=== PATIENT | male | born 1935 | race Caucasian/White ===

== ENCOUNTER 2021-01-07 19:42 | Emergency (ER) | payer MEDICARE, OTHER, SELFPAY ==
[2021-01-07] VITALS (12 sets, daily range): BP systolic 143–169; BP diastolic 74–100; PULSE 74–86; RESP 14–22; TEMP 35.6; O2SAT 92–99
--- NOTE | 2021-01-07 19:46 | DI.RAD.S_ITS ---
PROCEDURE: XR CHEST 1V INDICATIONS: chest pain TECHNIQUE: One view of the chest was acquired. COMPARISON: None. FINDINGS: Surgical changes and devices: None. Lungs and pleura: Left basilar scars and atelectasis. No pleural effusions or pneumothorax. Mediastinum: Mediastinal contours appear normal. Heart size is normal. Bones and chest wall: No suspicious bony lesions. Overlying soft tissues appear unremarkable. IMPRESSION: No acute cardiopulmonary disease. Left basilar scars and atelectasis. Dictated by: Leodan Kraus M.D. on 01/07/2021 at 20:22 Approved by: Leodan Kraus M.D. on 01/07/2021 at 20:22
[2021-01-07 20:05] LABS: Add Manual Diff / Slide Review NO; Basophils Absolute Auto 100 /uL (0-100); Basophils Percent Auto 1.4 % (0-2); Eosinophils Absolute Auto 300 /uL (0-450); Eosinophils Percent Auto 3.7 % (2-4); Hematocrit 46.5 % (41-53); Hemoglobin 15.5 g/dL (13.5-17.5); Lymphocytes Absolute Auto 1400 /uL (1100-4500); Lymphocytes Percent Auto 16.7 % (25-40); Mean Corpuscular HGB Conc 33.3 % (30-36); Mean Corpuscular Hemoglobin 33.8 PG (26-34); Mean Corpuscular Volume 101.3 fL (80-100); Monocytes Absolute Auto 1300 /uL (0-900); Monocytes Percent Auto 15.9 % (3-14); Neutrophils Absolute Auto 5100 /uL (1500-7000); Neutrophils Percent Auto 62.3 % (50-75); Platelet Count 170 X10^3/uL (150-400); Red Blood Cell Count 4.59 X10^6/uL (4.5-5.9); Red Cell Distribution Width 14.4 % (11.6-14.8); White Blood Cell Count 8.1 X10^3/uL (4.5-11.0)
[2021-01-07 20:14] LABS: INR 1.3 (0.9-1.3)
[2021-01-07 20:17] LABS: PTT Partial Thromboplastin Tim 30 SECONDS (26.4-36.2)
[2021-01-07 20:22] LABS: D Dimer 612 ng/mL (<230)
--- NOTE | 2021-01-07 20:24 | ED.SYNCOPE ---
HPI - Syncope <Bar Marie DO - Last Filed: 01/15/21 16:20> General Chief Complaint: Syncope Stated Complaint: Syncopal * 5 mins Time Seen by Provider: 01/07/21 19:45 Source: patient and EMS Mode of arrival: EMS History of Present Illness HPI narrative: 85M nonsmoker with history of paroxysmal AFib presents by EMS for evaluation of an episode of syncope. He was in his normal state of health and sitting at a table with some friends when he passed out. There is no report of obvious provocation such as standing up, walking, vomiting, chest pain. He had a episode of something over and quickly returned to his normal. He denies any change in medications or diet. He did have a couple alcoholic drinks today and denies much in the way of food and other drink. He denies any change in medications or recent travel. he is completely asymptomatic on arrival Related Data Allergies Allergy/AdvReac Type Severity Reaction Status Date / Time Penicillins Allergy Unknown Verified 01/07/21 19:50 Review of Systems <DO Yi Carter Last Filed: 01/15/21 16:20> Review of Systems Narrative: GENERAL: Denies chills, fatigue, malaise, fever, sweats. HEENT: Denies sinus pain, ear pain, sore throat, difficulty swallowing, dizziness. RESPIRATORY: Denies dyspnea, cough, wheezing, hemoptysis, sputum. CARDIOVASCULAR: see HPI GASTROINTESTINAL: Denies nausea, vomiting, abdominal pain, diarrhea, constipation, melena. : Denies dysuria, frequency, incontinence, hematuria, urinary retention. MUSCULOSKELETAL: denies weakness, joint pain, or bony pain SKIN: Denies rash, skin lesions, or other NEUROLOGIC: Denies weakness, headache, numbness, change in speech, confusion, seizures, incoordination. PSYCHIATRIC: No concerning psychosocial issues. 12 point review of systems is negative except for those stated above Patient History <DO Yi Carter Last Filed: 01/15/21 16:20> Social History Smoking Status: Former smoker Smoking Status: Former smoker alcohol intake frequency: 3 or more drinks per day Substance Use Type: does not use Exam <DO Yi Carter Last Filed: 01/15/21 16:20> Narrative Exam Narrative: GENERAL: [85] year old patient appears stated age. Well-developed patient, in mild distress. HEAD: Atraumatic. Normocephalic. EYES: Pupils equal round and reactive. Extraocular motions intact. No scleral icterus. No injection or drainage. ENT: Nose without bleeding, purulent drainage. Throat without erythema, tonsillar hypertrophy or exudate. Airway patent. NECK: Trachea midline. Non tender CARDIOVASCULAR: Regular rate and rhythm without murmurs, gallops, or rubs. RESPIRATORY: Clear to auscultation. Breath sounds equal bilaterally. No wheezes, rales, or rhonchi. GASTROINTESTINAL: Abdomen soft, non-tender, nondistended. EXTREMITIES: No edema or joint tenderness. BACK: Nontender without deformity or crepitance. No flank tenderness. NEURO: AOx3. SKIN: No rash or erythema of visible areas Initial Vital Signs Initial Vital Signs: Vital Signs Temperature 96.1 F L 01/07/21 19:45 Pulse Rate 85 01/07/21 19:45 Respiratory Rate 14 01/07/21 19:45 Blood Pressure 166/82 H 01/07/21 19:45 Pulse Oximetry 99 01/07/21 19:45 <Virgilio Real DO - Last Filed: 01/08/21 09:41> Initial Vital Signs Initial Vital Signs: Vital Signs Temperature 96.1 F L 01/07/21 19:45 Pulse Rate 85 01/07/21 19:45 Respiratory Rate 14 01/07/21 19:45 Blood Pressure 166/82 H 01/07/21 19:45 Pulse Oximetry 99 01/07/21 19:45 Course <Bar Marie DO - Last Filed: 01/15/21 16:20> Orders Ordered: Discontinued Medications Sodium Chloride (Normal Saline 0.9%) 1,000 mls @ 1,000 mls/hr IV BOLUS ONE Stop: 01/07/21 21:53 Last Infusion: 01/07/21 23:02 Dose: 0 mls/hr Documented by: [email or web address] Admin: 01/07/21 21:00 Dose: 1,000 mls/hr Documented by: [email or web address] Reevaluation(s) Reevaluation #1: Patient ambulating through the department using the restroom without any symptoms such as dizziness, weakness or lightheadedness. He is at his baseline and feeling quite well Consultations Consultation #1: discussion with patient's own elevator erector Dr. Patel, states he recommends observing for few hours, trending labs, EKG and provided there are no significant findings recommends discharge with close follow-up to include a likely Holter monitor. Vital Signs Vital signs: Vital Signs - 8 hr 01/08/21 08:32 Pulse Rate 110 H Blood Pressure 195/107 H Pulse Oximetry 97 <Virgilio Real DO - Last Filed: 01/08/21 09:41> Orders Ordered: Discontinued Medications Sodium Chloride (Normal Saline 0.9%) 1,000 mls @ 1,000 mls/hr IV BOLUS ONE Stop: 01/07/21 21:53 Last Infusion: 01/07/21 23:02 Dose: 0 mls/hr Documented by: [email or web address] Admin: 01/07/21 21:00 Dose: 1,000 mls/hr Documented by: CTRJENNA Vital Signs Vital signs: Vital Signs - 8 hr 01/08/21 08:32 Pulse Rate 110 H Blood Pressure 195/107 H Pulse Oximetry 97 MDM - Syncope <Bar Marie DO - Last Filed: 01/15/21 16:20> Lab Data Result diagrams: 01/08/21 00:51 01/08/21 00:51 Labs: Lab Results 01/07/21 01/07/21 01/07/21 Range/Units 19:54 19:54 19:54 WBC 8.1 (4.5-11.0) X10^3/uL RBC 4.59 (4.5-5.9) X10^6/uL Hgb 15.5 (13.5-17.5) g/dL Hct 46.5 (41-53) % MCV 101.3 H (80-100) fL MCH 33.8 (26-34) PG MCHC 33.3 (30-36) % RDW 14.4 (11.6-14.8) % Plt Count 170 (150-400) X10^3/uL Neut % (Auto) 62.3 (50-75) % Lymph % (Auto) 16.7 L (25-40) % [place] % (Auto) 15.9 H (3-14) % Eos % (Auto) 3.7 (2-4) % Baso % (Auto) 1.4 (0-2) % Neut # (Auto) 5100 (6829-9065) /uL Lymph # (Auto) 1400 (8184-5424) /uL [place] # (Auto) 1300 H (0-900) /uL Eos # (Auto) 300 (0-450) /uL Baso # (Auto) 100 (0-100) /uL PT 15.0 H (10.1-12.7) SECONDS INR 1.3 (0.9-1.3) APTT 30 (26.4-36.2) SECONDS D-Dimer 612 H (<230) ng/mL Sodium (137-145) mmol/L Potassium (3.4-5.1) mmol/L Chloride (98-107) mmol/L Carbon Dioxide (22-32) mmol/L BUN (9-20) mg/dL Creatinine (0.66-1.25) mg/dL Estimated GFR (>60) mL/min BUN/Creatinine Ratio (6-22) Glucose (80-110) mg/dL Calcium (8.4-10.2) mg/dL Magnesium (1.6-2.3) mg/dL Total Bilirubin (0.2-1.3) mg/dL AST (17-59) IU/L ALT (<50) IU/L Alkaline Phosphatase (38-126) U/L Total Creatine Kinase (55-170) U/L CK-MB (CK-2) CK-MB (CK-2) Rel Index Troponin I (0.01-0.034) ng/mL NT-Pro-B Natriuret Pep (<450) pg/mL Total Protein (6.3-8.2) g/dL Albumin (3.5-5.0) g/dL Globulin (1.7-4.1) g/dL Albumin/Globulin Ratio (1.0-2.8) Lipase (23-300) U/L SARS-CoV-2 (PCR) (Negative) 01/07/21 01/07/21 01/07/21 Range/Units 20:01 20:20 20:20 WBC (4.5-11.0) X10^3/uL RBC (4.5-5.9) X10^6/uL Hgb (13.5-17.5) g/dL Hct (41-53) % MCV (80-100) fL MCH (26-34) PG MCHC (30-36) % RDW (11.6-14.8) % Plt Count (150-400) X10^3/uL Neut % (Auto) (50-75) % Lymph % (Auto) (25-40) % [place] % (Auto) (3-14) % Eos % (Auto) (2-4) % Baso % (Auto) (0-2) % Neut # (Auto) (9311-7186) /uL Lymph # (Auto) (3735-8931) /uL [place] # (Auto) (0-900) /uL Eos # (Auto) (0-450) /uL Baso # (Auto) (0-100) /uL PT (10.1-12.7) SECONDS INR (0.9-1.3) APTT (26.4-36.2) SECONDS D-Dimer (<230) ng/mL Sodium 141 (137-145) mmol/L Potassium 4.1 (3.4-5.1) mmol/L Chloride 104 (98-107) mmol/L Carbon Dioxide 26 (22-32) mmol/L BUN 29 H (9-20) mg/dL Creatinine 1.71 H (0.66-1.25) mg/dL Estimated GFR 38.3 L (>60) mL/min BUN/Creatinine Ratio 17.0 (6-22) Glucose 119 H (80-110) mg/dL Calcium 9.4 (8.4-10.2) mg/dL Magnesium 2.3 (1.6-2.3) mg/dL Total Bilirubin 0.8 (0.2-1.3) mg/dL AST 40 (17-59) IU/L ALT 27 (<50) IU/L Alkaline Phosphatase 55 (38-126) U/L Total Creatine Kinase 53 L (55-170) U/L CK-MB (CK-2) TNP CK-MB (CK-2) Rel Index TNP Troponin I < 0.012 (0.01-0.034) ng/mL NT-Pro-B Natriuret Pep 1090 H (<450) pg/mL Total Protein 7.4 (6.3-8.2) g/dL Albumin 4.2 (3.5-5.0) g/dL Globulin 3.2 (1.7-4.1) g/dL Albumin/Globulin Ratio 1.3 (1.0-2.8) Lipase 144 (23-300) U/L SARS-CoV-2 (PCR) Negative (Negative) 01/08/21 01/08/21 Range/Units 00:51 00:51 WBC 6.5 (4.5-11.0) X10^3/uL RBC 4.53 (4.5-5.9) X10^6/uL Hgb 14.9 (13.5-17.5) g/dL Hct 45.9 (41-53) % MCV 101.3 H (80-100) fL MCH 32.9 (26-34) PG MCHC 32.5 (30-36) % RDW 14.1 (11.6-14.8) % Plt Count 128 L (150-400) X10^3/uL Neut % (Auto) 64.9 (50-75) % Lymph % (Auto) 16.0 L (25-40) % [place] % (Auto) 14.2 H (3-14) % Eos % (Auto) 4.2 H (2-4) % Baso % (Auto) 0.7 (0-2) % Neut # (Auto) 4200 (2464-0656) /uL Lymph # (Auto) 1000 L (6031-3282) /uL [place] # (Auto) 900 (0-900) /uL Eos # (Auto) 300 (0-450) /uL Baso # (Auto) 0 (0-100) /uL PT (10.1-12.7) SECONDS INR (0.9-1.3) APTT (26.4-36.2) SECONDS D-Dimer (<230) ng/mL Sodium 141 (137-145) mmol/L Potassium 3.9 (3.4-5.1) mmol/L Chloride 107 (98-107) mmol/L Carbon Dioxide 23 (22-32) mmol/L BUN 25 H (9-20) mg/dL Creatinine 1.55 H (0.66-1.25) mg/dL Estimated GFR 42.9 L (>60) mL/min BUN/Creatinine Ratio 16.1 (6-22) Glucose 108 (80-110) mg/dL Calcium 9.0 (8.4-10.2) mg/dL Magnesium (1.6-2.3) mg/dL Total Bilirubin (0.2-1.3) mg/dL AST (17-59) IU/L ALT (<50) IU/L Alkaline Phosphatase (38-126) U/L Total Creatine Kinase (55-170) U/L CK-MB (CK-2) CK-MB (CK-2) Rel Index Troponin I < 0.012 (0.01-0.034) ng/mL NT-Pro-B Natriuret Pep (<450) pg/mL Total Protein (6.3-8.2) g/dL Albumin (3.5-5.0) g/dL Globulin (1.7-4.1) g/dL Albumin/Globulin Ratio (1.0-2.8) Lipase (23-300) U/L SARS-CoV-2 (PCR) (Negative) Urine Dip Bedside Urine Glucose Negative Bedside Urine Bilirubin - Negative Bedside Urine Ketone - Negative Urine Specific [place] 1.015 Bedside Urine Occult Blood +/- Bedside Urine pH 6 Bedside Urine Protein + 30 Bedside Urine Urobilinogen - Negative Bedside Urine Nitrite - Negative Bedside Urine Leukocytes - Negative Esterase Imaging Data Chest x-ray: Radiologist's Impression: [address] [id number] ReportSigned Patient: Mark Alejo#: [id number]: 1935cct:[id number]/Sex: 85 / MDate of Service: 01/07/21Loc: EDAccession Number: [id number] Procedure: XR chest 1V Ordering Provider: Bar Marie D.O. PROCEDURE: XR CHEST 1V INDICATIONS: chest pain TECHNIQUE: One view of the chest was acquired. COMPARISON: None. FINDINGS: Surgical changes and devices: None. Lungs and pleura: Left basilar scars and atelectasis. No pleural effusions or pneumothorax. Mediastinum: Mediastinal contours appear normal. Heart size is normal. Bones and chest wall: No suspicious bony lesions. Overlying soft tissues appear unremarkable. IMPRESSION: No acute cardiopulmonary disease. Left basilar scars and atelectasis. Dictated by: Leodan Kraus M.D. on 01/07/2021 at 20:22 Approved by: Leodan Kraus M.D. on 01/07/2021 at 20:22 CT scan - chest: Radiologist's Impression: No evidence of PE. Minimal fibrotic changes bilaterally, no consolidation or pleural effusion. 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 in transverse dimension <Virgilio Real DO - Last Filed: 01/08/21 09:41> Lab Data Labs: Lab Results 01/07/21 01/07/21 01/07/21 Range/Units 19:54 19:54 19:54 WBC 8.1 (4.5-11.0) X10^3/uL RBC 4.59 (4.5-5.9) X10^6/uL Hgb 15.5 (13.5-17.5) g/dL Hct 46.5 (41-53) % MCV 101.3 H (80-100) fL MCH 33.8 (26-34) PG MCHC 33.3 (30-36) % RDW 14.4 (11.6-14.8) % Plt Count 170 (150-400) X10^3/uL Neut % (Auto) 62.3 (50-75) % Lymph % (Auto) 16.7 L (25-40) % [place] % (Auto) 15.9 H (3-14) % Eos % (Auto) 3.7 (2-4) % Baso % (Auto) 1.4 (0-2) % Neut # (Auto) 5100 (5215-7078) /uL Lymph # (Auto) 1400 (6445-0464) /uL [place] # (Auto) 1300 H (0-900) /uL Eos # (Auto) 300 (0-450) /uL Baso # (Auto) 100 (0-100) /uL PT 15.0 H (10.1-12.7) SECONDS INR 1.3 (0.9-1.3) APTT 30 (26.4-36.2) SECONDS D-Dimer 612 H (<230) ng/mL Sodium (137-145) mmol/L Potassium (3.4-5.1) mmol/L Chloride (98-107) mmol/L Carbon Dioxide (22-32) mmol/L BUN (9-20) mg/dL Creatinine (0.66-1.25) mg/dL Estimated GFR (>60) mL/min BUN/Creatinine Ratio (6-22) Glucose (80-110) mg/dL Calcium (8.4-10.2) mg/dL Magnesium (1.6-2.3) mg/dL Total Bilirubin (0.2-1.3) mg/dL AST (17-59) IU/L ALT (<50) IU/L Alkaline Phosphatase (38-126) U/L Total Creatine Kinase (55-170) U/L CK-MB (CK-2) CK-MB (CK-2) Rel Index Troponin I (0.01-0.034) ng/mL NT-Pro-B Natriuret Pep (<450) pg/mL Total Protein (6.3-8.2) g/dL Albumin (3.5-5.0) g/dL Globulin (1.7-4.1) g/dL Albumin/Globulin Ratio (1.0-2.8) Lipase (23-300) U/L SARS-CoV-2 (PCR) (Negative) 01/07/21 01/07/21 01/07/21 Range/Units 20:01 20:20 20:20 WBC (4.5-11.0) X10^3/uL RBC (4.5-5.9) X10^6/uL Hgb (13.5-17.5) g/dL Hct (41-53) % MCV (80-100) fL MCH (26-34) PG MCHC (30-36) % RDW (11.6-14.8) % Plt Count (150-400) X10^3/uL Neut % (Auto) (50-75) % Lymph % (Auto) (25-40) % [place] % (Auto) (3-14) % Eos % (Auto) (2-4) % Baso % (Auto) (0-2) % Neut # (Auto) (7544-4413) /uL Lymph # (Auto) (7950-1368) /uL [place] # (Auto) (0-900) /uL Eos # (Auto) (0-450) /uL Baso # (Auto) (0-100) /uL PT (10.1-12.7) SECONDS INR (0.9-1.3) APTT (26.4-36.2) SECONDS D-Dimer (<230) ng/mL Sodium 141 (137-145) mmol/L Potassium 4.1 (3.4-5.1) mmol/L Chloride 104 (98-107) mmol/L Carbon Dioxide 26 (22-32) mmol/L BUN 29 H (9-20) mg/dL Creatinine 1.71 H (0.66-1.25) mg/dL Estimated GFR 38.3 L (>60) mL/min BUN/Creatinine Ratio 17.0 (6-22) Glucose 119 H (80-110) mg/dL Calcium 9.4 (8.4-10.2) mg/dL Magnesium 2.3 (1.6-2.3) mg/dL Total Bilirubin 0.8 (0.2-1.3) mg/dL AST 40 (17-59) IU/L ALT 27 (<50) IU/L Alkaline Phosphatase 55 (38-126) U/L Total Creatine Kinase 53 L (55-170) U/L CK-MB (CK-2) TNP CK-MB (CK-2) Rel Index TNP Troponin I < 0.012 (0.01-0.034) ng/mL NT-Pro-B Natriuret Pep 1090 H (<450) pg/mL Total Protein 7.4 (6.3-8.2) g/dL Albumin 4.2 (3.5-5.0) g/dL Globulin 3.2 (1.7-4.1) g/dL Albumin/Globulin Ratio 1.3 (1.0-2.8) Lipase 144 (23-300) U/L SARS-CoV-2 (PCR) Negative (Negative) 01/08/21 01/08/21 Range/Units 00:51 00:51 WBC 6.5 (4.5-11.0) X10^3/uL RBC 4.53 (4.5-5.9) X10^6/uL Hgb 14.9 (13.5-17.5) g/dL Hct 45.9 (41-53) % MCV 101.3 H (80-100) fL MCH 32.9 (26-34) PG MCHC 32.5 (30-36) % RDW 14.1 (11.6-14.8) % Plt Count 128 L (150-400) X10^3/uL Neut % (Auto) 64.9 (50-75) % Lymph % (Auto) 16.0 L (25-40) % [place] % (Auto) 14.2 H (3-14) % Eos % (Auto) 4.2 H (2-4) % Baso % (Auto) 0.7 (0-2) % Neut # (Auto) 4200 (8396-2299) /uL Lymph # (Auto) 1000 L (8094-6547) /uL [place] # (Auto) 900 (0-900) /uL Eos # (Auto) 300 (0-450) /uL Baso # (Auto) 0 (0-100) /uL PT (10.1-12.7) SECONDS INR (0.9-1.3) APTT (26.4-36.2) SECONDS D-Dimer (<230) ng/mL Sodium 141 (137-145) mmol/L Potassium 3.9 (3.4-5.1) mmol/L Chloride 107 (98-107) mmol/L Carbon Dioxide 23 (22-32) mmol/L BUN 25 H (9-20) mg/dL Creatinine 1.55 H (0.66-1.25) mg/dL Estimated GFR 42.9 L (>60) mL/min BUN/Creatinine Ratio 16.1 (6-22) Glucose 108 (80-110) mg/dL Calcium 9.0 (8.4-10.2) mg/dL Magnesium (1.6-2.3) mg/dL Total Bilirubin (0.2-1.3) mg/dL AST (17-59) IU/L ALT (<50) IU/L Alkaline Phosphatase (38-126) U/L Total Creatine Kinase (55-170) U/L CK-MB (CK-2) CK-MB (CK-2) Rel Index Troponin I < 0.012 (0.01-0.034) ng/mL NT-Pro-B Natriuret Pep (<450) pg/mL Total Protein (6.3-8.2) g/dL Albumin (3.5-5.0) g/dL Globulin (1.7-4.1) g/dL Albumin/Globulin Ratio (1.0-2.8) Lipase (23-300) U/L SARS-CoV-2 (PCR) (Negative) Urine Dip Bedside Urine Glucose Negative Bedside Urine Bilirubin - Negative Bedside Urine Ketone - Negative Urine Specific [place] 1.015 Bedside Urine Occult Blood +/- Bedside Urine pH 6 Bedside Urine Protein + 30 Bedside Urine Urobilinogen - Negative Bedside Urine Nitrite - Negative Bedside Urine Leukocytes - Negative Esterase MDM Narrative Medical decision making narrative: Dr Real: 01/08/21 0940: Received a phone call from Radiology with the over read of his chest CT today which showed enlarged lymph nodes in his left axilla. Patient was still in the emergency department and I went and evaluated him. He had no discomfort in his left axilla. I feel these are incidental findings however he was informed of them and instructed he needed to contact his primary doctor for follow-up. He expressed understanding and agreement. Discharge Plan Departure Patient Disposition: Home Clinical Impression: Syncope Qualifiers: Syncope type: unspecified Qualified Code(s): R55 - Syncope and collapse Instructions: DI for Syncope in Adults (Fainting) Activity Restrictions/Additional Instructions: *You have been diagnosed with [ syncope with very reassuring physical exam, labs] *What to do: *Please continue to take your regular medications as directed. [ ] New medication prescriptions sent to your pharmacy: [ ] [ ] New medication written as a paper prescription [x ] No new medications given *Please follow up with your primary care provider in 2-3 days, call for an appointment. Let them know you were seen in the Emergency Department and that we ask that you be seen in follow up. We will electronically transmit a record of today's note if your PCP is in our system *If you do not have a primary care provider please contact the [facility] Resource line at [phone]. They will ask some questions about your medical history and help get you set up with a doctor in the community. *Return to Emergency Department if you should have any new, worsening or concerning symptoms, such as [fever greater than 101 F, shaking chills, worsening pain, persistent vomiting or other bothersome symptoms]
[2021-01-07 20:39] LABS: Alanine Aminotransferase 27 IU/L (<50); Albumin 4.2 g/dL (3.5-5.0); Albumin Globulin Ratio 1.3 (1.0-2.8); Alkaline Phosphatase 55 U/L (38-126); Aspartate Aminotransferase 40 IU/L (17-59); Bilirubin Total 0.8 mg/dL (0.2-1.3); Blood Urea Nitrogen 29 mg/dL (9-20); Calcium 9.4 mg/dL (8.4-10.2); Carbon Dioxide 26 mmol/L (22-32); Chloride 104 mmol/L (98-107); Creatine Kinase 53 U/L (55-170); Estimated Glomerular Filt Rate 38.3 mL/min (>60); Globulin 3.2 g/dL (1.7-4.1); Glucose 119 mg/dL (80-110); HEMOLYSIS < 15 (0-50); Lipase 144 U/L (23-300); Magnesium 2.3 mg/dL (1.6-2.3); Potassium 4.1 mmol/L (3.4-5.1); Sodium 141 mmol/L (137-145); Total Protein 7.4 g/dL (6.3-8.2)
[2021-01-07 20:47] LABS: NT-proBNP (BNP-Adult 18+) 1090 pg/mL (<450)
[2021-01-07 20:49] LABS: Troponin I < 0.012 ng/mL (0.01-0.034)
[2021-01-07] MEDS: SODIUM CHLORIDE 0.9% 1,000 ML 1000 ML IV (21:00)
[2021-01-07 21:06] LABS: COVID19 - ADMIT (NP swab/PCR) Negative (Negative)
[2021-01-08] VITALS: BP 145/75; PULSE 81; O2SAT 95
[2021-01-08 00:30] VITALS: BP 161/86; PULSE 84; O2SAT 96
--- NOTE | 2021-01-08 00:57 | DI.CT.S_ITS ---
PROCEDURE: CT ANGIO CHEST PE PROTOCOL INDICATIONS: syncope, elevated d dimer TECHNIQUE: After the administration of intravenous contrast, 2 mm thick sections acquired from the pulmonary apices to the posterior costophrenic angles. 3-dimensional maximum intensity projection (MIP) coronal and sagittal reformats were then acquired through the thorax. For radiation dose reduction, the following was used: automated exposure control, adjustment of mA and/or kV according to patient size. COMPARISON: [facility], CR, XR CHEST 1V, 01/07/2021, 19:55. FINDINGS: Image quality: Excellent. Pulmonary arteries: Pulmonary arteries are normal in size, and demonstrate no intraluminal filling defects to suggest central pulmonary embolism. Lungs and pleura: There is lingula scars and atelectasis. No pleural effusions or pneumothorax. Central and peripheral airways are patent. Mediastinum: Heart size is normal. Moderate to severe coronary artery calcification. No pericardial effusion. No mediastinal or hilar adenopathy. Thoracic aorta is normal in caliber and enhancement. Esophagus is normal in caliber. Small hiatal hernia. Bones and chest wall: No suspicious bony lesions. Ribs and thoracic spine appear intact throughout. Degenerative changes in thoracic and lumbar spine. Thyroid gland is normal. There is left axillary lymphadenopathy. For example the largest lymph node measures.1.8 cm diameter. Abdomen: Hepatic steatosis. There is a 1.8 cm low-density cortical nodule in the superior pole of the left kidney. Spleen is absent. There is a 1.6 cm nodule in the left upper abdomen, probably remnant spleen. IMPRESSION: 1. No evidence for pulmonary embolism. 2. Left lingula scars and atelectasis. 3. Left axillary lymphadenopathy. 4. Moderate to severe coronary artery calcification. 5. Hepatic steatosis. No significant discrepancy with the shift nurse manager radiology preliminary report. Please note the finding of left axillary lymphadenopathy was not mention in the preliminary interpretation. The result was discussed with Dr. Real in ER this morning. Dictated by: Leodan Kraus M.D. on 01/08/2021 at 7:38 Approved by: Leodan Kraus M.D. on 01/08/2021 at 9:15
[2021-01-08 01:15] LABS: Add Manual Diff / Slide Review NO; Basophils Absolute Auto 0 /uL (0-100); Basophils Percent Auto 0.7 % (0-2); Eosinophils Absolute Auto 300 /uL (0-450); Eosinophils Percent Auto 4.2 % (2-4); Hematocrit 45.9 % (41-53); Hemoglobin 14.9 g/dL (13.5-17.5); Lymphocytes Absolute Auto 1000 /uL (1100-4500); Mean Corpuscular HGB Conc 32.5 % (30-36); Mean Corpuscular Hemoglobin 32.9 PG (26-34); Mean Corpuscular Volume 101.3 fL (80-100); Monocytes Absolute Auto 900 /uL (0-900); Monocytes Percent Auto 14.2 % (3-14); Neutrophils Absolute Auto 4200 /uL (1500-7000); Neutrophils Percent Auto 64.9 % (50-75); Platelet Count 128 X10^3/uL (150-400); Red Blood Cell Count 4.53 X10^6/uL (4.5-5.9); Red Cell Distribution Width 14.1 % (11.6-14.8); White Blood Cell Count 6.5 X10^3/uL (4.5-11.0)
[2021-01-08 01:25] LABS: BUN Creatinine Ratio 16.1 (6-22); Blood Urea Nitrogen 25 mg/dL (9-20); Carbon Dioxide 23 mmol/L (22-32); Chloride 107 mmol/L (98-107); Estimated Glomerular Filt Rate 42.9 mL/min (>60); Glucose 108 mg/dL (80-110); HEMOLYSIS < 15 (0-50); Potassium 3.9 mmol/L (3.4-5.1); Sodium 141 mmol/L (137-145)
[2021-01-08 01:37] LABS: Troponin I < 0.012 ng/mL (0.01-0.034)
[2021-01-08 08:32] VITALS: BP 195/107; PULSE 110; O2SAT 97
--- NOTE | 2021-01-08 12:26 | PC.NURSE ---
Report of visit faxed to pt's primary for follow up.
== END 2021-01-08 09:49 | disposition home or self-care (01) ==
PROVIDERS: Emergency Provider Emergency Medicine
DX: R55 Syncope and collapse (principal); R07.9 Chest pain, unspecified; Z20.822 Contact with and (suspected) exposure to COVID-19
CPT/HCPCS: 36415; 71045; 71275; 80048; 80053; 81003; 82550; 83690; 83735; 83880; 84484; 85025; 85379; 85610; 85730; 87635; 93005; 93010; 96360; 96361; 99284; C9803; Q9967